=== PATIENT | female | born 1985 | race Caucasian/White ===

== ENCOUNTER 2020-07-13 23:30 | Emergency (ER) | payer SELFPAY ==
[~2020-07-13] VITALS: Ht 162.6 cm; Wt 52.2 kg
[2020-07-13 23:35] VITALS: BP 137/92
[2020-07-13] MEDS ORDERED: CEFTRIAXONE 500 MG VIAL ONE (23:51)
[2020-07-13] MEDS ORDERED: LIDOCAINE /MPF 1% VIAL 5 ML VIAL ONE (23:51)
--- NOTE | 2020-07-13 23:58 | NUR ---
PATIENT CAME TO ER BED 9 C/O GONORRHEA. PATIENT STATES THAT SHE ALSO DID SNORT SOME COCAINE AND C/O NOSTRIL PAIN AND BLURRY EYES. PATIENT IS AAOX4. NO SOB. BREATHING EVENLY AND UNLABORED ON ROOM AIR. CONNECTED TO THE MONITOR.
[2020-07-14] MEDS ORDERED: CEFTRIAXONE 500 MG VIAL IM ONE
[2020-07-14 00:09] LABS: BILIRUBIN,URINE NEGATIVE (NEGATIVE); COLOR,URINE YELLOW (YELLOW); LEUKOCYTE ESTERASE ,URINE TRACE (NEGATIVE); NITRITE, URINE NEGATIVE (NEGATIVE); PROTEIN,URINE NEGATIVE (NEGATIVE); UGLUCOSE NEGATIVE (NEGATIVE); UROBILINOGEN,URINE 0.2 EU/dL (0.2)
[2020-07-14 00:15] LABS: BACTERIA,URINE Many /HPF (None Seen); RBC,URINE 0-2 /HPF (0-2); SQUAMOUS EPITHELIAL CELL,UR Many /HPF (None Seen)
[2020-07-14] MEDS ORDERED: LORAZEPAM 0.5 MG TABLET ONE (00:20)
[2020-07-14] MEDS ORDERED: DOXY100C2 PO ×2 (00:22→00:45)
[2020-07-14] MEDS ORDERED: LORAZEPAM 0.5 MG TABLET PO ONE (00:30)
--- NOTE | 2020-07-14 00:51 | NUR ---
Patient discharged to home in stable condition. Written and verbal after care instructions given. Patient verbalizes understanding of instruction.
--- NOTE | 2020-07-14 00:58 | NUR ---
PATIENT IS PICKED UP BY [facility].
== END 2020-07-14 01:01 | disposition home or self-care (01) ==
LOC: EDBD 23:33 → ER 23:33
DX: F14.10 Cocaine abuse, uncomplicated (principal); Z22.4 Carrier of infections with a predominantly sexual mode of transmission
CPT/HCPCS: 81001; 84703; 96372; 99283; J0696; J3490

== ENCOUNTER 2020-07-15 11:39 | Emergency (ER) | payer SELFPAY ==
[~2020-07-15] VITALS: Ht 162.6 cm; Wt 53.5 kg
[~2020-07-15 11:39] MED LIST: DOXY100C2 PO
--- NOTE | 2020-07-15 11:40 | NUR ---
BIB RA 80 FROM HOME,BEEN TAKING GHB,XANAX,COCAINE,ADDERALL AND MARIJUANA X 2 DAYS BECAUSE OF FEELING DEPRESSED, DENIES SUICIDAL IDEATION. PATIENT AA/OX3, VERBALLY RESPONSIVE, BREATHING EVEN AND UNLABORED, NO SOB NOTED. ATTACHED TO THE CATEGORY DEVELOPMENT ANALYST.
--- NOTE | 2020-07-15 11:45 | NUR ---
DR. MONTGOMERY AT BEDSIDE FOR EVAL.
--- NOTE | 2020-07-15 11:50 | NUR ---
PATIENT ASSISTED TO RESTROOM. PATIENT AWAKE, AND ALERT, ABLE TO ANSWER QUESTIONS BUT SHE'S STILL DROWSY. IV LINE ESTABLISHED, BLOOD DRAWN AND SENT TO LAB.
--- NOTE | 2020-07-15 12:06 | NUR ---
CALLED POISON CONTROL. RECOMMENDATIONS: SUPPORTIVE CARE. IF PATIENT DEVOLOPS SEIZURES, OKAY TO TREAT WITH BENZO'S. CHECK TYLENOL AND ASPIRIN LEVELS. GHB WILL MAKE PATIENT DROWSY. MONITOR PATIENT FOR HOUR OBSERVATION.
--- NOTE | 2020-07-15 12:10 | NUR ---
URINE SENT TO LAB.
[2020-07-15 12:16] LABS: BASOPHILS % (AUTO) 0.5 % (0.0-2.0); EOSINOPHILS % (AUTO) 5.7 % (0.0-6.0); HEMATOCRIT 36 % (33-45); HEMOGLOBIN 12.2 g/dL (11.5-14.8); LYMPHOCYTES # (AUTO) 1.5 /CMM (0.8-4.8); LYMPHOCYTES % (AUTO) 18.9 % (20.0-44.0); MEAN CORPUSCULAR HGB CONC 33 g/dl (31.0-36.0); MEAN CORPUSCULAR VOLUME 96 fL (82-100); MONOCYTES # (AUTO) 0.6 /CMM (0.1-1.30); MONOCYTES % (AUTO) 7.3 % (2.0-12.0); NEUTROPHILS # (AUTO) 5.3 /CMM (1.8-8.9); NEUTROPHILS % (AUTO) 67.6 % (43.0-81.0); PLATELET COUNT (AUTO) 312 /CMM (150-450); RED BLOOD CELL COUNT(AUTO) 3.77 MIL/uL (4.0-5.2); WHITE BLOOD COUNT (AUTO) 7.9 K/uL (4.3-11.0)
--- NOTE | 2020-07-15 12:22 | NUR ---
COVID SWAB SENT.
[2020-07-15] MEDS: IV NS 0.9% 1,000 ML IV ONE (12:30)
[2020-07-15 12:33] LABS: CALCIUM, SERUM 8.6 mg/dL (8.5-10.1); CARBON DIOXIDE 27 mmol/L (21-32); CHLORIDE 102 mmol/L (98-107); CREATININE 0.6 mg/dL (0.6-1.3); GLUCOSE 91 mg/dL (74-106); POTASSIUM 3.8 mmol/L (3.5-5.1); SODIUM SERUM 138 mmol/L (136-145); UREA NITROGEN, BLOOD 9 mg/dL (7-18)
[2020-07-15 12:34] LABS: BILIRUBIN,URINE NEGATIVE (NEGATIVE); LEUKOCYTE ESTERASE ,URINE NEGATIVE (NEGATIVE); NITRITE, URINE NEGATIVE (NEGATIVE); PROTEIN,URINE NEGATIVE (NEGATIVE); UGLUCOSE NEGATIVE (NEGATIVE); UROBILINOGEN,URINE 0.2 EU/dL (0.2)
[2020-07-15 12:37] LABS: COLOR,URINE STRAW (YELLOW)
[2020-07-15 12:40] LABS: ALANINE AMINOTRANSFERASE 18 U/L (12-78); ALBUMIN 3.6 g/dL (3.4-5.0); ALCOHOL, BLOOD < 3 mg/dL (0-0); ALKALINE PHOSPHATASE 60 U/L (46-116); ASPARTATE AMINOTRANSFERASE 14 U/L (15-37); BILIRUBIN,DIRECT 0.2 mg/dL (0.0-0.2); BILIRUBIN,TOTAL 0.6 mg/dL (0.2-1.0)
[2020-07-15 12:41] LABS: ACETAMINOPHEN 0 ug/ml (10-30)
--- NOTE | 2020-07-15 13:04 | NUR ---
[employer] OFFICER UNIT 9A18 AT BEDSIDE TO INTERVIEW PATIENT. PATIENT DENIES BEING SUICIDAL.
--- NOTE | 2020-07-15 13:15 | NUR ---
received a call from the lab regarding covid 19 result "negative". notified
--- NOTE | 2020-07-15 14:17 | NUR ---
CALLED SPAR FINISHER FOR CONSULT.
--- NOTE | 2020-07-15 14:30 | NUR ---
PATIENT A/OX4, BREATHING EVEN AND UNLABORED, AMBULATORY WITH STEADY GAIT. CALLED BOYFRIEND FOR PAUNCH TRIMMER.
--- NOTE | 2020-07-15 14:47 | NUR ---
SEEN AND EVALUATED BY LAZARA LYN, RESOURCES PROVIDED FOR OUTPATIENT FACILITY.
--- NOTE | 2020-07-15 14:54 | NUR ---
SS Consult : SS Consult requested for OD, Depression. The pt. is a 34-year old female who was BIBRA due to polysubstance use: GHB, Xanax, Cocaine, MJ. SW met with pt. bedside. The pt. is alert & oriented x 4 and does not make appropriate eye contact. The pt. appears unkempt. Pt.s mood is depressed. SW assessed for SI. However, pt. denies any SI or plan to harm self. The pt. stated that she has been feeling sad due to I lost many friends here in [place]. Patient stated that she has been partying a lot recently because she became single about 1 month ago. SW asked pt. regarding support system. Pt. stated she has family but not in communication with them. Patient stated she has a new boyfriend, Yousuf De Los Santos could not provide number off the top of her head. Patient stated that he can pick her up once ready for discharge. Noted. SW assessed pt.s living situation. Patient stated she resides at [[address] [facility] [address] [facility] [address]; [phone]] alone. Patient denies SI/HI and denies hallucinations. SW explored pt.s mental health Hx. Patient stated she has been diagnosed with ADD in the past. Patient stated she has a psychiatrist, Gus Ferris and cannot provide phone number off the top of her head. SW completed polysubstance use intervention with pt. Patient stated, that this is a wake up call for me. Patient stated she had a bad reaction to drugs she used and does not plan to continue using. Pt. stated she does not feel she will have thoughts of hurting self when she goes home. SW provided patient with the following addiction resources and mental health resources. Patient accepted them and expressed understanding. SW encouraged patient to go the nearest mental health urgent care if she begins to feel unsafe. Patient expressed understanding and is agreeable to plan. KRYSTINA reviewed resources with pt. Counseling--Outpatient [facility] [address], [place] [address] (Specializes in in-depth psychotherapy for emotional distress: anxiety, depression, interpersonal conflicts, life transitions, childhood abuse) [address] [address] (Assist with solving problem marital difficulties, separation & divorce, aging parents, & grief, chronic & terminal illness) [facility] [address] [place] [address] (Deal with loss & grief, anxiety, marital difficulties) Homebound/Mental Health Services [address], [address] [place], [place] [address] (Provide in-home mental services to people who are incapable of leaving their homes) [facility] [address] [place], [place] [id number] [facility] [address] [place], [place] [id number] PSYCHIATRIC OUTPATIENT SERVICES [facility] Partial Hospitalization and Intensive Outpatient Program (Managed Care and [place] Only)[address] [facility] [phone] [facility] Partial Hospitalization and Outpatient [id number] [facility] [place], [place] [phone] [facility] Partial Hospitalization and Outpatient [id number] [facility] [place], [place] [phone] [facility] [place] [id number] [facility] [facility] [address] [place], [place] [phone] [facility] Partial Hospitalization and Outpatient [id number] Emelita [place], [phone] ADDICTION RESOURCES For Drugs and Alcohol [facility] Substance Abuse Helpline(SAS)-[facility] Outpatient treatment, residential treatment, recovery support for youth and adults [facility] www.actionfamilycounsGLIIF.Evtron Sara [place] Teen programs for drug/alcohol education and support Verenice [place]. Program for adults, sliding scale provides support and education [facility] www.Circle PharmaFuzmo.org [place]; Outpatient/residential treatment programs; transition to sober living [facility] www.cri-help.org [place]; Outpatient and residential treatment programs; transition to sober living I-[facility]ARP [facility] [place]; Outpatient education and supportive programs for teens and adults [facility] www.oasiswomensrecovery.org [place]; Residential treatment and work program for females only [place] www.MemBlazesarasota.Counsyl [place]: Outpatient/residential treatment program for teens and young adults [facility].org [place] [facility], inpatient, outpatient for adults and youth [facility], [facility]. [place]; Outpatient programs and referrals to community residential programs. Alcoholics Anonymous -SFV information and meeting and schedules www.aa-intergroup.org Mj-Hvms-Ftujucq https://al-anon.org/ [place] support groups for family of alcoholics. Marijuana Anonymous www.madistrict6.org -sfv listing of meetings Narcotics Anonymous www.na.org SOBER LIVING RESOURCES [facility] www.soberhousing.net A non-profit agency that provides resources to recovery and sober living homes throughout [facility] Sober Living Homes: A Work in ProgressAnastasia [facility] [employer] [place] [facility], [place] [facility] Emmanuel [place] Womens Sober Living Homes: [facility] [phone] [place], [place] [facility] Unique MicroguidesLegacy [facility] Sober Living Homes: [facility]
--- NOTE | 2020-07-15 15:00 | NUR ---
Patient discharged to home in stable condition. Written and verbal after care instructions given. Patient verbalizes understanding of instruction. IV removed. Catheter intact and site benign. Pressure and 4x4 applied to site. No bleeding noted. Boyfriend picked up the patient.
[2020-07-15 15:25] VITALS: BP 121/82
== END 2020-07-15 15:26 | disposition home or self-care (01) ==
LOC: ER 11:41
DX: F15.10 Other stimulant abuse, uncomplicated (principal); F14.10 Cocaine abuse, uncomplicated; F13.10 Sedative, hypnotic or anxiolytic abuse, uncomplicated; Z20.822 Contact with and (suspected) exposure to COVID-19; F19.10 Other psychoactive substance abuse, uncomplicated
CPT/HCPCS: 36415; 80048; 80076; 80299; 80307; 80320; 81003; 85025; 87426; 96360; 99285; C9803; J7030; G0480

== ENCOUNTER 2020-08-22 11:26 | Emergency (ER) | payer SELFPAY ==
[~2020-08-22] VITALS: Ht 162.6 cm; Wt 49.9 kg
[2020-08-22 11:32] VITALS: BP 146/80
--- NOTE | 2020-08-22 11:51 | NUR ---
Patient discharged to home in stable condition. Written and verbal after care instructions given. Patient verbalizes understanding of instruction.
== END 2020-08-22 11:51 | disposition home or self-care (01) ==
LOC: ER 11:35
DX: S00.412A Abrasion of left ear, initial encounter (principal); Z60.2 Problems related to living alone; X58.XXXA Exposure to other specified factors, initial encounter; Y93.89 Activity, other specified; Y92.89 Other specified places as the place of occurrence of the external cause; Y99.8 Other external cause status